=== PATIENT | female | born 1975 | race Caucasian/White ===

== ENCOUNTER → 2018-12-04 | Outpatient (CLI) | payer OTHER ==
--- NOTE | 2018-12-08 20:00 | MAM ---
EXAM DESCRIPTION: 3D Screening BILATERAL : Digital Mammography. CLINICAL HISTORY: 43 years Female ANNUAL SCREENING . No complaints. No personal or family history of breast cancer. Mother with ovarian cancer. Childbirth. Postmenopausal 20+ years. HRT 5 or more years ago. Bilateral breast reduction.. Lifetime risk of developing breast cancer (Tyrer-Cuzick model)(%): 7.1. COMPARISON: Baseline study at this facility. No prior reports available. TECHNIQUE: Bilateral CC and MLO projection full-field images, digital tomosynthesis mammographic technique. Bilateral digital 2-D full-field MLO images. CAD not available for tomosynthesis or 2-D images. FINDINGS: The breast parenchymal density pattern is: Almost entirely fatty. No skin thickening or nipple retraction. A large cluster of calcifications is visualized at the 9:00 position of the posterior third of the right breast abutting the pectoral muscle and chest wall. This is suggestive of fat necrosis. Coarse calcification is visible at the 9:00 position of the posterior third of the left breast. Architectural changes in the bilateral breasts bilaterally are consistent with clinical history of breast reduction with these changes predominantly in the inferior and posterior breast bilaterally. No focal, stellate mass or density, focal asymmetry , and no suspicious microcalcifications bilaterally. IMPRESSION: Benign exam. BIRAD CATEGORY: 2 BENIGN FINDINGS. RECOMMENDATIONS: FOLLOW UP: Routine digital bilateral mammographic screening, one year interval from November 2018. Written communication explaining the IMPRESSION and follow-up, will be mailed to the patient and referring health care provider. According to the [employer], yearly mammograms are recommended starting at age 40 and continuing as long as a woman is in good health. Any breast change noted on a breast self-exam should be reported promptly to the patient's healthcare provider. Breast MRI is recommended for women with an approximately 20-25% or greater lifetime risk of breast cancer, including women with a strong family history of breast or ovarian cancer and women who have been treated for Hodgkin's disease. A negative mammographic report should not delay tissue diagnosis in patients with significant clinical history or physical findings. Extremely dense breast tissue limits the sensitivity of digital mammography. Electronically signed by: Gordy Kapadia MD 12/08/2018 7:59 PM CDT
== END ==
LOC: MAMMO 11:43
PROVIDERS: ATTEND Nurse Practitioner Family
DX: Z12.31 Encounter for screening mammogram for malignant neoplasm of breast (principal)

== ENCOUNTER → 2019-03-24 | Outpatient (CLI) | payer OTHER ==
--- NOTE | 2019-03-24 11:46 | US ---
EXAM DESCRIPTION: Aorta: Ultrasound. CLINICAL HISTORY: FAMILY HX OF AAA COMPARISON: None. TECHNIQUE: Transcutaneous scanning: Two-dimensional and Doppler modes. FINDINGS: Abdominal aorta diameter - Proximal: 1.7 x 1.5 cm. Mid: 1.6 x 1.4 cm. Distal: 1.5 x 1.3 cm. Common Iliac diameter - Right: 8 mm. Left: 8 mm. Other: Unremarkable. IMPRESSION: No abdominal aortic aneurysm or significant narrowing. Electronically signed by: Gordy Kapadia MD 03/24/2019 11:44 AM [facility]
== END ==
LOC: US 08:30
PROVIDERS: ATTEND Nurse Practitioner Family
DX: Z82.49 Family history of ischemic heart disease and other diseases of the circulatory system (principal)

== ENCOUNTER → 2019-05-08 | Outpatient (CLI) | payer OTHER | LOC: LAB.O 11:00 | PROVIDERS: ATTEND Internal Medicine Nephrology | DX: N18.3 Chronic kidney disease, stage 3 (moderate) (principal) ==

== ENCOUNTER 2019-05-18 18:26 | Emergency (ER) | payer OTHER ==
[2019-05-18] MEDS ORDERED: SODIUM CHLORIDE 0.9% (FLUSH) 10 ML SYG IV PRN (18:28)
--- NOTE | 2019-05-18 18:29 | ED.PDOC ---
History of Present Illness - General Time Seen by Provider: 05/18/19 18:27 Source: patient - History of Present Illness Initial Comments: 44 yo female with PMH of chronic smoker, hiatal hernia, GERD who presents with cc of chest discomfort. Onset last night while eating fajitas. Eased up this morning but recurred again since 2-3 hours ago. Denies pain but reports "feels like my heart is racing" in center of chest, also reports ongoing sx's of indig estion in same area and in epigastric region, no radiation, not worse with exertion or improved with rest, has had poor appetite and nausea but no emesis, took ASA 650 mg PO 15 mins NURSE'S COMPANION without relief. Did not take her Protonix today. Also reports mild dyspnea. Denies any hx of similar sx's. No known cardiac hx but has many family members with cardiac dz. Smokes 1 ppd cigarettes, occasional EtOH usage. Allergies/Adverse Reactions: Allergies Sulfa Drugs Allergy (Verified 05/18/19 18:52) Home Medications: Ambulatory Orders Dicyclomine HCl [Bentyl] 20 mg PO TID #15 tab 04/26/15 Ciprofloxacin [Cipro] 250 mg PO BID #14 tab 10/23/16 Review of Systems - Review of Systems Review of Systems: 05/18/19 18:44 as per HPI All other Systems: Reviewed and Negative Past Medical History (General) - Patient Medical History Hx Seizures: Yes Hx Stroke: No Hx Dementia: No Hx Asthma: No Hx of COPD: No Hx Cardiac Disorders: Yes - dylipidema Hx Congestive Heart Failure: No Hx Pacemaker: No Hx Hypertension: No Hx Thyroid Disease: No Hx Diabetes: No Hx Gastroesophageal Reflux: No Hx Renal Disease: Yes - left removal due to reflux Hx Cancer: No Hx of HIV: No Hx Hepatitis C: No Hx MRSA: Yes MRSA Source:: Wound - Vaccination History Hx Tetanus, Diphtheria Vaccination: No Hx Influenza Vaccination: No Hx Pneumococcal Vaccination: No - Social History Hx Tobacco Use: Yes Hx Chewing Tobacco Use: No Hx Alcohol Use: No Hx Substance Use: No Hx Substance Use Treatment: No Hx Depression: No Hx Physical Abuse: No Hx Emotional Abuse: No Hx Suspected Abuse: No - Female History Patient : No Family Medical History - Family History Mother Living Status: Still Living Hx Family Hypertension: Yes Hx Cardiac Disease: Yes - dyslipidemia Hx Family;Other: copd Father Living Status: Still Living Hx Family Hypertension: Yes Hx Cardiac Disease: Yes - dyslipidemia, 6 bypass Hx Family Diabetes: Yes Hx Family;Other: seizures Brother Living Status: Still Living Hx Family;Other: seizures Physical Exam - Physical Exam General Appearance: Alert, No apparent distress Eye Exam: bilateral normal Ears, Nose, Throat: hearing grossly normal, normal ENT inspection, normal pharynx Neck: non-tender, full range of motion, supple, normal inspection Respiratory: lungs clear, normal breath sounds, no respiratory distress, no accessory muscle use Cardiovascular/Chest: normal peripheral pulses, regular rate, rhythm, no edema, no gallop, no murmur Peripheral Pulses: radial,right: 2+, radial,left: 2+ Gastrointestinal/Abdominal: soft, no organomegaly, tenderness - moderate to epigastric region only without guarding or rebound Back Exam: normal inspection, no CVA tenderness, no vertebral tenderness Extremity: normal range of motion, non-tender, normal inspection, no pedal edema, no calf tenderness 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 Trop has been neg x2 and repeat EKG unchanged. Vitals stable. Labs otherwise unremarkable. -discussed dx of GERD as well as home treatment and need for PCP f/u. Advised smoking cessation -dc home in good condition Dionicio Diggs MD Billing #[id number] 05/18/19 18:28 IV Care:Saline Lock per Protoc QSHIFT Telemetry .ONCE Sodium Chloride 0.9% (Flush) [Saline Flush Syringe] 10 ml IV PRN PRN URINALYSIS Stat 05/18/19 18:30 EKG STAT 05/18/19 20:25 EKG Assessment ONCE 05/18/19 20:30 EKG STAT 05/19/19 09:00 Pulse Ox Daily Laboratory Results - last 24 hr 05/18/19 05/18/19 05/18/19 18:38 18:38 18:38 WBC 9.8 RBC 4.43 Hgb 13.5 Hct 39.7 MCV 89.5 MCH 30.4 MCHC 34.0 RDW 13.8 Plt Count 251 MPV 7.9 Absolute Neuts (auto) 5.60 Absolute Lymphs (auto) 3.10 Absolute Monos (auto) 0.70 Absolute Eos (auto) 0.30 Absolute Basos (auto) 0.10 Neutrophils % 57.1 Lymphocytes % 32.0 Monocytes % 6.8 Eosinophils % 2.7 Basophils % 1.4 Sodium 142 Potassium 3.9 Chloride 108 Carbon Dioxide 24 Anion Gap 13.9 BUN 15 Creatinine 1.07 BUN/Creatinine Ratio 14.0 Random Glucose 102 Serum Osmolality 284.1 Calcium 9.2 Total Bilirubin 0.4 AST 23 ALT 23 Alkaline Phosphatase 87 Troponin I < 0.02 B-Natriuretic Peptide 24.6 Serum Total Protein 7.3 Albumin 4.0 Globulin 3.3 Albumin/Globulin Ratio 1.2 Serum HCG, Qual Beta HCG, Quant Cancelled 05/18/19 05/18/19 18:38 20:30 WBC RBC Hgb Hct MCV MCH MCHC RDW Plt Count MPV Absolute Neuts (auto) Absolute Lymphs (auto) Absolute Monos (auto) Absolute Eos (auto) Absolute Basos (auto) Neutrophils % Lymphocytes % Monocytes % Eosinophils % Basophils % Sodium Potassium Chloride Carbon Dioxide Anion Gap BUN Creatinine BUN/Creatinine Ratio Random Glucose Serum Osmolality Calcium Total Bilirubin AST ALT Alkaline Phosphatase Troponin I < 0.02 B-Natriuretic Peptide Serum Total Protein Albumin Globulin Albumin/Globulin Ratio Serum HCG, Qual Negative Beta HCG, Quant - EKG/XRAY/CT EKG: Sinus - NSR, HR 70, no ST elevations or q waves, axis & intervals normal, unchanged compared to 05/17/14 EKG - Additional EKG/XRAY/Consults EKG #2: Unchanged from - initial Departure - Departure Clinical Impression: GERD (gastroesophageal reflux disease) Qualifiers: Esophagitis presence: esophagitis presence not specified Qualified Code(s): K21.9 - Gastro-esophageal reflux disease without esophagitis Time of Disposition: 21:12 Disposition: Discharge to Home or Self Care Condition: Good Instructions: Acid Reflux (Gastroesophageal Reflux Disease), Adult (DC) Diet: other - GERD diet Referrals: Su Saldivar NP [Primary Care Provider] - 1-2 Weeks Home Medications: Ambulatory Orders Dicyclomine HCl [Bentyl] 20 mg PO TID #15 tab 04/26/15 Ciprofloxacin [Cipro] 250 mg PO BID #14 tab 10/23/16 Additional Instructions: Follow instruction packet for GERD and diet/lifestyle adjustments to prevent symptoms. I advise you quit smoking as we discussed as it can worsen reflux symptoms and increase your risk for cancer, lung disease, heart disease, etc... Continue OTC meds for GERD prevention with Protonix 20-40 mg daily, Tums PRN, etc... Follow up closely with your primary care doctor for repeat evaluation. Return if concerning symptoms develop such as change in or worsening of chest pain, shortness of breath, intractable vomiting, blood in the vomit or stool, dark/black stools, severe or worsening abdominal pain, etc...
[2019-05-18] MEDS ORDERED: ALUM & MAG HYDROX-SIMETHICONE 30 ML, LIDOCAINE VISCOUS 2% 15 ML PO ONE ×2 (18:40)
[2019-05-18] MEDS ORDERED: SODIUM CHLORIDE 0.9% 1000ML 1,000 ML IVS ONE (18:40)
[2019-05-18] MEDS ORDERED: PANTOPRAZOLE SODIUM IV 40 MG VIAL IV ONE (18:40)
[2019-05-18 18:52] VITALS: TEMP 98.7
[2019-05-18] MEDS ORDERED: LIDOCAINE HCL 2% (MOUTH-THROAT) 15 ML UD ONE (18:58)
[2019-05-18] MEDS ORDERED: ALUM & MAG HYDROX-SIMETHICONE 30 ML UD ONE (18:59)
[2019-05-18] MEDS: ONDANSETRON INJ 4 MG/2 ML VIAL IV ONE ×2 (19:05→19:08)
--- NOTE | 2019-05-18 20:11 | RAD ---
EXAM: XR Chest, 1 View CLINICAL HISTORY: 44 years old Female; chest pain. TECHNIQUE: Frontal view of the chest. COMPARISON: No relevant prior studies available. FINDINGS: LUNGS: Lungs clear of focal infiltrate or mass. PLEURAL SPACE: No pleural fluid. No pneumothorax. HEART: Heart not enlarged. MEDIASTINUM: Unremarkable. BONES/JOINTS: No acute bony abnormality seen. UPPER ABDOMEN: Incidentally noted are multiple surgical clips projected over the upper left abdomen. IMPRESSION: - No acute cardiopulmonary pathology seen. Thank you for allowing us to participate in the care of this patient. Electronically signed by: Pedro Motta MD 05/18/2019 8:10 PM [facility]
[2019-05-18 21:22] VITALS: BP 121/86; O2SAT 96
== END 2019-05-18 21:30 | disposition home or self-care (01) ==
LOC: ER 18:26
DX: K21.9 Gastro-esophageal reflux disease without esophagitis (principal); R07.89 Other chest pain; R06.00 Dyspnea, unspecified; F17.210 Nicotine dependence, cigarettes, uncomplicated; R56.9 Unspecified convulsions; E78.5 Hyperlipidemia, unspecified; Z82.49 Family history of ischemic heart disease and other diseases of the circulatory system; Z88.2 Allergy status to sulfonamides; Z90.5 Acquired absence of kidney
CPT/HCPCS: 36415; 71045; 80053; 83880; 84484; 84703; 85025; 93005; J2405; J7030

== ENCOUNTER 2019-11-05 21:35 | Emergency (ER) | payer OTHER ==
[2019-11-05] MEDS ORDERED: ONDANSETRON INJ 4 MG/2 ML VIAL IV ONE (21:55)
[2019-11-05] MEDS ORDERED: FAMOTIDINE IV PREMIX 20 MG in PREMIX BAG 1 BAG IVPB ONE (21:55)
[2019-11-05] MEDS ORDERED: SODIUM CHLORIDE 0.9% (FLUSH) 10 ML SYG IV PRN (21:55)
[2019-11-05 22:00] VITALS: BP 144/84
--- NOTE | 2019-11-05 22:10 | ED.PDOC ---
History of Present Illness - General Chief Complaint: GI Problem Stated Complaint: I have been vomiting blood Time Seen by Provider: 11/05/19 21:55 Source: patient, RN notes reviewed, Vital Signs reviewed, family Exam Limitations: no limitations - History of Present Illness Initial Comments: Patient is a 44-year-old female with past medical history of rheumatoid arthr itis and gastritis who presents the ED for 1 day history of nausea and vomiting with blood in emesis. States earlier this afternoon she became nauseated, but denies fever or diarrhea. Had mild burning epigastric pain throughout the day. This evening she has vomited twice and noticed streaks of bright red blood in her emesis. She denies chest pain, shortness of breath. States she has a history of gastritis and GERD and takes pantoprazole daily. Her last EGD was 1 year ago in [place] and showed gastritis. She does not take NSAIDs frequently. Denies being on any blood thinners. States she was started on methotrexate and folic acid approximately 10 days ago for rheumatoid arthritis. Allergies/Adverse Reactions: Allergies Sulfa Drugs Allergy (Verified 05/18/19 18:52) Home Medications: Ambulatory Orders Folic Acid 1 mg PO 11/05/19 Methotrexate Sodium [Methotrexate] 11/05/19 Ondansetron HCl [Zofran] 4 mg PO Q6HR PRN #15 tab 11/05/19 Pantoprazole Sodium 20 mg PO 11/05/19 Rosuvastatin Calcium 20 mg PO 11/05/19 Sucralfate Tab [Carafate Tab] 1 gm PO AC #60 tablet 11/05/19 Triazolam 0.25 mg PO 11/05/19 Review of Systems - Review of Systems Constitutional: Denies: chills, fever, weakness EENTM: Denies: nose congestion, throat pain Respiratory: Denies: cough, short of breath Cardiology: Denies: chest pain, palpitations, syncope Gastrointestinal/Abdominal: States: nausea, vomiting. Denies: diarrhea Genitourinary: Denies: dysuria, frequency, hematuria Musculoskeletal: Denies: joint pain, muscle pain Skin: States: no symptoms reported Neurological: Denies: headache, paresthesia Hematologic/Lymphatic: Denies: easy bleeding, easy bruising All other Systems: Reviewed and Negative Past Medical History (General) - Patient Medical History Hx Seizures: Yes Hx Stroke: No Hx Dementia: No Hx Asthma: No Hx of COPD: No Hx Cardiac Disorders: Yes - dylipidema Hx Congestive Heart Failure: No Hx Pacemaker: No Hx Hypertension: No Hx Thyroid Disease: No Hx Diabetes: No Hx Gastroesophageal Reflux: Yes Hx Renal Disease: Yes - left removal due to reflux Hx Cancer: No Hx of HIV: No Hx Hepatitis C: No Hx MRSA: Yes MRSA Source:: Wound Surgical History: Hysterectomy - Vaccination History Hx Tetanus, Diphtheria Vaccination: No Hx Influenza Vaccination: No Hx Pneumococcal Vaccination: No Immunizations Up to Date: No - Social History Hx Tobacco Use: Yes Hx Chewing Tobacco Use: No Hx Alcohol Use: Yes Hx Substance Use: No Hx Substance Use Treatment: No Hx Depression: No Hx Physical Abuse: No Hx Emotional Abuse: No Hx Suspected Abuse: No - Female History Patient is a Female of Child Bearing Age (10 -59 yrs old): Yes Patient : No Family Medical History - Family History Mother Living Status: Still Living Hx Family Hypertension: Yes Hx Cardiac Disease: Yes - dyslipidemia Hx Family;Other: copd Father Living Status: Still Living Hx Family Hypertension: Yes Hx Cardiac Disease: Yes - dyslipidemia, 6 bypass Hx Family Diabetes: Yes Hx Family;Other: seizures Brother Living Status: Still Living Hx Family;Other: seizures Physical Exam - Physical Exam General Appearance: Alert, Comfortable, No apparent distress Neck: full range of motion, supple Respiratory: chest non-tender, lungs clear, normal breath sounds, no respiratory distress Cardiovascular/Chest: regular rate, rhythm, no edema, no murmur Gastrointestinal/Abdominal: soft, other - Mild tender to palpation epigastric area. No guarding or rigidity. Extremity: normal range of motion, non-tender, normal inspection Neurologic: no motor/sensory deficits, alert, normal mood/affect, oriented x 3 Skin Exam: normal color, warm/dry Progress - Progress Progress: 11/05/19 22:14 Patient has a history of gastritis and GERD and takes PPI daily. States she has felt nauseated with burning upper abdominal pain this afternoon and this evening vomited twice with streaks of bright red blood. She denies feeling lightheaded, dizzy, near syncope, palpitations, chest pain or shortness of breath. Vital signs are stable. Will get labs and treat with IV Pepcid and continue to evaluate in ED. 11/05/19 22:35 Patient feels improved after nausea medicine and Pepcid and GI cocktail. She is tolerating p.o. fluids well. She has had no vomiting in ED. I have discussed with patient results. She has no hypotension or tachycardia, hemoglobin is normal, platelets and coags are within normal limits. I have recommended she continue taking her pantoprazole daily and will add Zofran and Carafate. I have asked her to follow-up with her PCP in 1 to 2 days for continued evaluation and will need referral to GI for repeat endoscopy if symptoms are not resolved. Strict return precautions given. - Results/Orders Results/Orders: 11/05/19 21:55 IV Care:Saline Lock per Protoc QSHIFT Sodium Chloride 0.9% (Flush) [Saline Flush Syringe] 10 ml IV PRN PRN Laboratory Results - last 24 hr 11/05/19 11/05/19 11/05/19 22:09 22:09 22:09 WBC 10.4 RBC 4.39 Hgb 13.8 Hct 39.2 MCV 89.3 MCH 31.4 H MCHC 35.1 RDW 13.7 Plt Count 250 MPV 7.8 Absolute Neuts (auto) 5.90 Absolute Lymphs (auto) 3.70 H Absolute Monos (auto) 0.50 Absolute Eos (auto) 0.20 Absolute Basos (auto) 0.10 Neutrophils % 56.6 Lymphocytes % 35.2 Monocytes % 4.9 Eosinophils % 1.9 Basophils % 1.4 PT 9.9 INR 1.00 PTT (SP) 23.4 Sodium Potassium Chloride Carbon Dioxide Anion Gap BUN Creatinine BUN/Creatinine Ratio Random Glucose Serum Osmolality Calcium Total Bilirubin AST ALT Alkaline Phosphatase Serum Total Protein Albumin Globulin Albumin/Globulin Ratio Lipase 46 11/05/19 22:09 WBC RBC Hgb Hct MCV MCH MCHC RDW Plt Count MPV Absolute Neuts (auto) Absolute Lymphs (auto) Absolute Monos (auto) Absolute Eos (auto) Absolute Basos (auto) Neutrophils % Lymphocytes % Monocytes % Eosinophils % Basophils % PT INR PTT (SP) Sodium 138 Potassium 3.7 Chloride 108 Carbon Dioxide 20 L Anion Gap 13.7 BUN 16 Creatinine 1.32 H BUN/Creatinine Ratio 12.1 Random Glucose 88 Serum Osmolality 276.3 Calcium 9.4 Total Bilirubin 0.5 AST 34 ALT 42 Alkaline Phosphatase 75 Serum Total Protein 7.6 Albumin 4.3 Globulin 3.3 Albumin/Globulin Ratio 1.3 Lipase Departure - Departure Clinical Impression: Upper abdominal pain Acute gastritis with bleeding Qualifiers: Gastritis type: unspecified gastritis Qualified Code(s): K29.01 - Acute gastritis with bleeding Nausea & vomiting Qualifiers: Vomiting type: unspecified Vomiting Intractability: non-intractable Qualified Code(s): R11.2 - Nausea with vomiting, unspecified Time of Disposition: 22:39 Disposition: Discharge to Home or Self Care Condition: Good Departure Forms: ED Discharge - Pt. Copy, Patient Portal Self Enrollment Instructions: Gastritis (DC) Diet: bland diet Activity: increase activity as tolerated Referrals: Su Saldivar NP [Primary Care Provider] - 1-2 Days Prescriptions: Ondansetron HCl [Zofran] 4 mg PO Q6HR PRN #15 tab PRN Reason: Nausea Sucralfate Tab [Carafate Tab] 1 gm PO AC #60 tablet Home Medications: Ambulatory Orders Folic Acid 1 mg PO 11/05/19 Methotrexate Sodium [Methotrexate] 11/05/19 Ondansetron HCl [Zofran] 4 mg PO Q6HR PRN #15 tab 11/05/19 Pantoprazole Sodium 20 mg PO 11/05/19 Rosuvastatin Calcium 20 mg PO 11/05/19 Sucralfate Tab [Carafate Tab] 1 gm PO AC #60 tablet 11/05/19 Triazolam 0.25 mg PO 11/05/19
[2019-11-05 22:31] VITALS: O2SAT 97
[2019-11-05 22:44] VITALS: TEMP 98.1
== END 2019-11-05 22:44 | disposition home or self-care (01) ==
LOC: ER 21:35
DX: K29.01 Acute gastritis with bleeding (principal); R11.2 Nausea with vomiting, unspecified; R10.10 Upper abdominal pain, unspecified; F17.200 Nicotine dependence, unspecified, uncomplicated
CPT/HCPCS: 36415; 80053; 83690; 85025; 85610; 85730; A4216; J2405; J3490

== ENCOUNTER → 2020-01-14 | Outpatient (CLI) | payer OTHER ==
--- NOTE | 2020-01-15 09:38 | MRI ---
EXAM DESCRIPTION: Brain w/o Contrast CLINICAL HISTORY: CVA COMPARISON: None available TECHNIQUE: Non contrast MRI of the brain is performed according to our usual protocol including multiplanar multi sequence technique. FINDINGS: No hemorrhage, mass effect, restricted diffusion, or acute infarction is present. There is normal configuration of the ventricles and sulci. Few subcentimeter T2/FLAIR hyperintensities in the supratentorial white matter measuring 4 to 5 mm each. No abnormal extra-axial fluid collections are present. Normal flow voids are present. The calvarium is intact. Visualized paranasal sinuses and mastoid air cells are clear. IMPRESSION: 1. No acute intracranial abnormality. 2. Few scattered T2/FLAIR hyperintensities in the supratentorial white matter. These are nonspecific and may be seen with a number of etiologies, including the sequela of migraine headaches or early changes of chronic microangiopathy. These are not in a characteristic for a demyelinating disease, but this is not totally excluded. Electronically signed by: Josh Dorantes MD 01/15/2020 9:37 AM CDT
== END ==
LOC: MRI 13:39
PROVIDERS: ATTEND Internal Medicine Nephrology
DX: I63.9 Cerebral infarction, unspecified (principal); R90.82 White matter disease, unspecified

== ENCOUNTER → 2020-01-15 | Outpatient (CLI) | payer OTHER | LOC: LAB.O 08:16 | PROVIDERS: ATTEND Internal Medicine Nephrology | DX: N18.4 Chronic kidney disease, stage 4 (severe) (principal) ==